=== PATIENT | female | born 1985 | race Caucasian/White ===

== ENCOUNTER 2020-05-18 13:58 | Outpatient (CLI) | payer OTHER, SELFPAY ==
[2020-05-18 14:11] LABS: SARS Covid-2 Antigen Negative (Negative)
== END 2020-05-18 13:59 | disposition home or self-care (01) ==
LOC: LAB 14:00
PROVIDERS: Visit Provider Family Medicine
DX: B34.9 Viral infection, unspecified (principal)
CPT/HCPCS: 87426

== ENCOUNTER → 2020-07-28 11:51 | Outpatient (BNVA) | payer OTHER, SELFPAY | PROVIDERS: Visit Provider Nurse Practitioner Family | DX: Z20.828 Contact with and (suspected) exposure to other viral communicable diseases (principal) | CPT/HCPCS: 87635 ==

== ENCOUNTER 2020-11-05 20:01 | Inpatient (IN) | payer OTHER, SELFPAY ==
[2020-11-05] VITALS (8 sets, daily range): BP systolic 112–136; BP diastolic 65–86; PULSE 75–93; RESP 15–18; TEMP 36.9; BMI 22.2
[2020-11-05 20:23] LABS: Basophils # 0.1 10^3/uL (0.0-0.1); Basophils % 0.5 %; Eosinophils # 0.1 10^3/uL (0.0-0.8); Eosinophils % 0.5 %; Hematocrit 39.9 % (37.0-47.0); Hemoglobin 13.5 g/dL (11.5-15.3); Lymphocytes # 2.3 10^3/uL (0.8-4.8); Lymphocytes % 15.1 %; Mean Corpuscular HGB Conc 33.8 g/dL (30.0-36.0); Mean Corpuscular Hemoglobin 32.7 pg (28.0-34.0); Mean Corpuscular Volume 96.6 fL (81-99); Mean Platelet Volume 8.9 fL (7.4-10.4); Monocytes # 0.8 10^3/uL (0.2-0.9); Monocytes % 5.7 %; Neutrophils # 11.51 10^3/uL (1.8-7.7); Neutrophils % 77.4 %; Nucleated Red Blood Cells % 0 %; Platelet Count 245 10^3/cmm (130-400); Red Blood Count 4.13 10^6/uL (4.1-5.3); Red Cell Distribution Width 13.7 % (12.1-15.1); White Blood Count 14.9 10^3/uL (4.0-10.0)
[2020-11-05] MEDS: dextrose 5%-lactated ringers 1,000 ML 125 ML IV (22:40)
[2020-11-05] MEDS: oxytocin 30 UNIT/500 ML BAG 600 UNIT IV (22:41)
--- NOTE | 2020-11-05 22:41 | PM.DELIVERY ---
Delivery Note: Date of delivery: November 05, 2020 Pre-delivery diagnoses: 35-year-old female at 38 weeks estimated gestational age Post-delivery diagnoses: Same Procedure: Spontaneous vaginal delivery Op report anesthesia: None Estimated blood loss (mL): 500 Pre-Delivery Course: The patient is a 35-year-old 4 para 3-0-0-3 with an estimated gestational age of 38 weeks who presented to the hospital today in active labor. Her membranes were intact on arrival. And she progressed to complete without any intervention. She was GBS negative. Her Covid status was unknown. Her glucose screen was negative. There were no other abnormalities noted in her labs. Delivery: DELIVERY: The patient progressed to complete without difficulty. She delivered a female with a weight of 6 pounds 11 ounces with Apgars of 8, 9. The baby was delivered from the MASOUD position and placed on the mother's abdomen. The cord was then clamped and cut 1 minute after delivery. There was no nuchal cord. There was no meconium. The placenta and 3 vessel cord were delivered intact shortly thereafter. The perineum and vaginal vault were carefully examined. No lacerations were noted. Both the mother and the baby were in stable condition. Post-Delivery Status: Good A&P Assessment and plan (1) 38 weeks gestation of : Status: Acute (2) Spontaneous vaginal delivery: Status: Acute Coding Level of Care Code Acute Image Scientist for Chg Fwd Diagnoses 38 weeks gestation of Z3A.38 Spontaneous vaginal delivery O80
[2020-11-05] MEDS: acetaminophen 325 mg Tablet 650 MG PO (23:11)
[2020-11-05] MEDS: ibuprofen 800 mg tablet PO (23:11)
[2020-11-06] VITALS (56 sets, daily range): BP systolic 98–137; BP diastolic 52–90; PULSE 62–97; RESP 16; TEMP 36.2–37.1; O2SAT 96–99
[2020-11-06] MEDS: oxytocin 30 UNIT/500 ML BAG 150 UNIT IV (00:28)
[2020-11-06] MEDS: benzocaine-menthol 78 gm Canister 1 SPRAY TOPICAL (07:12)
[2020-11-06] MEDS: lanolin oint 7 gm 1 APPLIC TOPICAL (07:12)
[2020-11-06] MEDS: prenatal vitamin Capsule 1 CAP PO (10:18)
[2020-11-06] MEDS: docusate sodium 100 mg Capsule PO ×2 (10:18→17:22)
[2020-11-06] MEDS: ibuprofen 800 mg tablet PO ×3 (10:18→21:39)
[2020-11-06 10:36] LABS: Hematocrit 29.6 % (37.0-47.0); Hemoglobin 10.1 g/dL (11.5-15.3); Mean Corpuscular HGB Conc 34.1 g/dL (30.0-36.0); Mean Corpuscular Hemoglobin 33.4 pg (28.0-34.0); Mean Platelet Volume 9.1 fL (7.4-10.4); Platelet Count 229 10^3/cmm (130-400); Red Blood Count 3.02 10^6/uL (4.1-5.3); Red Cell Distribution Width 13.7 % (12.1-15.1); White Blood Count 12.6 10^3/uL (4.0-10.0)
--- NOTE | 2020-11-06 19:09 | PM.OBGYDC ---
Discharge Providers INJECTION MACHINE OPERATOR Date of Admission: 11/05/20 20:01 Date of Discharge: 11/06/20 Attending Provider at Admission: Guilherme Tejeda MD Attending Provider at Discharge: Guilherme Tejeda MD Diagnoses at Discharge Discharge Diagnosis (1) 38 weeks gestation of : Status: Acute (2) Spontaneous vaginal delivery: Status: Acute Reason for Visit Reason for Visit: contractions Hospital Course Hospital Course The patient presented to the hospital in active labor. She then progressed to complete without difficulty. Her membranes ruptured at the time of delivery. She pushed through 1 contraction and delivered her baby without difficulty. She had no tears. She had couple of episodes where she had large amounts of blood after delivery. Her uterus clamped down nicely. Her pain was well controlled. She breast-fed well. Her course was unremarkable. There were no complications. Information Peripartum Data: Infant Delivery Method: Vaginal Physical Exam Narrative: EXAM NARRATIVE: The patient is alert. She appears comfortable. Her heart has a regular rate and rhythm with no murmurs appreciated. Lungs are clear to auscultation bilaterally. Her fundus is firm and below the umbilicus. Discharge Data Data Completed and Pending: Labs from last 24 hours 11/06/20 11/05/20 10:15 20:15 WBC 12.6 H 14.9 H RBC 3.02 L 4.13 Hgb 10.1 L 13.5 Hct 29.6 L 39.9 MCV 98.0 96.6 MCH 33.4 32.7 MCHC 34.1 33.8 RDW 13.7 13.7 Plt Count 229 245 MPV 9.1 8.9 Neut % (Auto) 77.4 Lymph % (Auto) 15.1 Loving % (Auto) 5.7 Eos % (Auto) 0.5 Baso % (Auto) 0.5 Neut # (Auto) 11.51 H Lymph # (Auto) 2.3 Loving # (Auto) 0.8 Eos # (Auto) 0.1 Baso # (Auto) 0.1 Nucleated RBC % (a uto) 0 Nucleated RBCs # 0.0 Vitals: Last Vital Signs Temp 97.7 F 11/06/20 15:41 Pulse 78 11/06/20 15:40 Resp 16 11/06/20 15:44 BP 113/64 11/06/20 15:40 Pulse Ox 97 11/06/20 04:19 Discharge Plan Discharge Patient Disposition: Home Condition: Stable Prescriptions: New ibuprofen 800 mg Tablet 800 mg PO TID Qty: 45 RF: 0 Continued Classic 28 mg iron- 800 mcg tablet PO RF: 0 Discharge Orders: Discharge Order (Routine); Ordered 11/06/20 Ordered By: Guilherme Tejeda Referrals: Guilherme Tejeda MD [Physician] - 12/17/20 2:30 pm Discharge Diet: Usual diet Discharge Activity: Limit activity as instructed Patient Instructions: Breast Care for the Breast Feeding Mother (DC), Vaginal Delivery (GEN), Bleeding (DC), OB Discharge Report, OB Food/Drug Interaction Guide, OB Care at Home, OB Vaginal Deliveries, Depression Discharge Attestations INJECTION MACHINE OPERATOR Time Spent in Discharge Care*: less than 30 min Specific Discharge Activities: Specific discharge activities: educating patient Coding Level of Care Code Acute Candles Pourer for Chg Fwd Diagnoses 38 weeks gestation of Z3A.38 Spontaneous vaginal delivery O80
== END 2020-11-06 23:35 | disposition home or self-care (01) | DRG 807 ==
LOC: OPOB 20:01 → OBGYN 20:01
PROVIDERS: Admitting Provider Family Medicine; Visit Provider Family Medicine
DX: O80 Encounter for full-term uncomplicated delivery (principal); Z37.0 Single live birth; Z3A.38 38 weeks gestation of pregnancy
CPT/HCPCS: 12345; 36415; 59025; 59409; 85025; 85027; 99211

== ENCOUNTER 2023-01-30 08:52 | Outpatient (CLI) | payer OTHER, SELFPAY ==
--- NOTE | 2023-01-30 09:10 | XR_ITS ---
WS: [id number] Chest 2 views, 01/30/2023 Clinical Data: positive TB test Comparison: None. Findings: No nodules, masses or effusions are seen. The heart is normal. The pulmonary vascularity is not increased. No pneumonia or pneumothorax is seen. There is no evidence of tuberculosis. XR/XR chest 2V* [id number] Impression: Negative chest.
== END 2023-01-30 08:53 | disposition home or self-care (01) ==
LOC: RAD 09:02
PROVIDERS: PCP Family Medicine; Visit Provider Family Medicine
DX: R76.11 Nonspecific reaction to tuberculin skin test without active tuberculosis (principal)
CPT/HCPCS: 71046